=== PATIENT | female | born 1930 | race Caucasian/White ===

== ENCOUNTER 2017-03-16 11:24 | Emergency (ER) | payer OTHER, MEDICAID ==
[~2017-03-16] VITALS: Ht 165.1 cm; Wt 77.6 kg
[~2017-03-16 11:24] MED LIST: ALEVE220 MG PO; APAP500 PO; ARICEPT 5 MG TAB5 MG PO; ASPIRIN325 PO; ASPIRIN81 M2 PO; ATIVAN0.5 M1 PO; AUGMENTIN 875875 MG PO; B-12500 MCG PO; CELEXA10 MG PO; COUMADIN 2.5MG2.5 M1 PO; COUMADIN 3 MG TA3 MG PO; COUMADIN 4 MG TA4 M1; COUMADIN 4 MG TA4 M1 PO; COUMADIN 5 MG TA5 M1 PO; DYAZIDE OR; FISH OIL 1,001000 M2 PO; FISHOIL PO; FOSINOPRIL SODI40 M1 PO; IBUPROFEN 400400 M2 PO; LASIX 40 MG TAB40 M1 PO; MAGNESIUM400 MG PO; MAXZIDE-25 MG1 EACH PO; NORCO 5-325 TA1 EACH PO; OMEGA-31000 M1 PO; POTASSIUM20 PO; PRINIVIL5 MG PO; TOPROL XL25 MG PO; TOPROL XL50 MG PO; TORSEMIDE20 MG PO; TRIAMTERENE/HCT1 CA1 PO; VITAMIN B-12500 MC4 PO; ZOCOR40 MG PO; [UNRECOGNIZED DRUG - REMARK]
[2017-03-16 11:48] LABS: URINE BILIRUBIN NEGATIVE (Negative); URINE BLOOD TRACE (Negative); URINE COLOR YELLOW; URINE GLUCOSE-RANDOM* NEGATIVE (Negative); URINE KETONES NEGATIVE (Negative); URINE NITRITE NEGATIVE (Negative); URINE PROTEIN (DIPSTICK) NEGATIVE (Negative); URINE SPECIFIC GRAVITY <= 1.005 (1.003-1.035); URINE UROBILINOGEN 0.2 E.U./dl (0.2-1.0)
[2017-03-16 12:12] LABS: ABSOLUTE NEUTROPHILS 5.4 thou/uL (1.4-8.2); EOSINOPHILS 1.9 % (0.0-3.0); HEMATOCRIT 40.9 % (37.0-47.0); HEMOGLOBIN 13.8 gm/dL (12.0-15.0); LYMPHOCYTES 10.7 % (24.0-44.0); MANUAL DIFF NO; MCH 30.8 pg (26.0-34.0); MCHC 33.9 g/dL (28.0-37.0); MCV 90.9 fL (80.0-100.0); MONOCYTES 6.2 % (1.0-8.0); PLATELET COUNT 381 thou/uL (150-400); POLYS 80.2 % (36.0-66.0); RDW 14.9 % (10.5-14.5); WBC 6.7 thou/uL (4.0-11.0)
[2017-03-16 12:16] LABS: CREATININE 1.5 mg/dL (0.6-1.0); POTASSIUM 3.7 mmol/L (3.5-5.1)
[2017-03-16 12:23] LABS: APTT 42.6 Seconds (24.5-32.8); INR 3.7; PROTIME 37.2 Seconds (9.3-11.4)
[2017-03-16] MEDS ORDERED: NAMZARIC 28 MG1 EACH PO (13:20)
[2017-03-16] MEDS ORDERED: FLONASE 0.05%50 MCG NASAL (13:20)
[2017-03-16] MEDS ORDERED: VITAMIN D3400 UNIT PO (13:21)
[2017-03-16] MEDS ORDERED: MIRALAX17 GM PO (13:22)
[2017-03-16] MEDS ORDERED: NORCO 5-325 TA1 EACH PO (13:24)
[2017-03-16] MEDS ORDERED: ULTRAM 50MG TAB50 MG PO (14:14)
== END 2017-03-16 14:51 | disposition home or self-care (01) ==
LOC: ER 11:24
PROVIDERS: Nurse Practitioner
DX: S22.32XA Fracture of one rib, left side, initial encounter for closed fracture (principal); M19.90 Unspecified osteoarthritis, unspecified site; F41.9 Anxiety disorder, unspecified; F32.9 Major depressive disorder, single episode, unspecified; I48.91 Unspecified atrial fibrillation; I11.0 Hypertensive heart disease with heart failure; I50.9 Heart failure, unspecified; F03.90 Unspecified dementia, unspecified severity, without behavioral disturbance, psychotic disturbance, mood disturbance, and anxiety; Z95.1 Presence of aortocoronary bypass graft; Z90.49 Acquired absence of other specified parts of digestive tract; Z88.5 Allergy status to narcotic agent; Z88.8 Allergy status to other drugs, medicaments and biological substances; W18.39XA Other fall on same level, initial encounter; Y93.89 Activity, other specified; Y92.091 Bathroom in other non-institutional residence as the place of occurrence of the external cause; Y99.8 Other external cause status